=== PATIENT | male | born 1935 | race Caucasian/White ===

== ENCOUNTER 2022-08-26 02:33 | Emergency (ER) | payer OTHER, SELFPAY ==
--- NOTE | ~2022-08-26 | CT_ITS ---
CT of the Abdomen and Pelvis: Indication: Abdominal pain Technique: 2.5 mm axial scans were obtained through the abdomen and pelvis following intravenous adm inistration of 100 cc of Omnipaque 350. Dose reduction technique was used on this scan by utilizing a utomated exposure control and iterative reconstruction technique. The dose-length product (DLP) was 2 86.82 mGy-cm. Findings: Scans through the lung bases are unremarkable. There is mild intrahepatic biliary dilatation. No hepatic parenchymal mass identified. There is ill-d efined hypodense mass measuring approximately 5.8 x 3.4 cm in the pancreatic body of the proximal radha l, extensively encasing the celiac axis vessels and also encasing the SMA, suspicious for pancreatic adenocarcinoma. Focal calcifications noted to the pancreatic head. The spleen, gallbladder, adrenals and right kidney are within normal limits. 8 mm left lower pole massiel al stone present. No evidence of aortic aneurysm. There are atherosclerotic calcifications of the aor ta. No lymphadenopathy. There is a large left inguinal hernia containing a large portion of the sigmoid colon. No bowel obstr uction evident. Fat-containing right inguinal hernia noted. Images through the pelvis were performed. 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 Prostate gland is markedly enlarged, and indents to the bladder base. No ascites. Impression: 5.8 x 3.4 cm hypodense mass at the pancreatic body and tail, highly suspicious for pancreatic adenoca rcinoma. There is extensive encasement of the celiac axis vessels and the SMA. Large left inguinal hernia containing a large portion of the sigmoid colon. No bowel obstruction evid ent. Mild intrahepatic biliary dilatation. 8 mm nonobstructing left renal stone. Fat-containing right inguinal hernia. Markedly enlarged prostate gland. Urinary bladder wall thickening. Correlate for cystitis. Reviewed, dictated and finalized at location . [facility] Impression: 5.8 x 3.4 cm hypodense mass at the pancreatic body and tail, highly suspicious for pancreatic adenocarcinoma. There is extensive encasement of the celiac axis vessels and the SMA. Large left inguinal hernia containing a large portion of the sigmoid colon. No bowel obstruction evident. Mild intrahepatic biliary dilatation. 8 mm nonobstructing left renal stone. Fat-containing right inguinal hernia. Markedly enlarged prostate gland. Urinary bladder wall thickening. Correlate for cystitis.
[2022-08-26 02:35] VITALS: BP 120/71; PULSE 77; RESP 18; TEMP 36.6; O2SAT 99
[2022-08-26 03:13] LABS: Glucose Point of Care 98 mg/dl (65-105)
[2022-08-26 03:13] LABS: Glucose Point of Care 121 mg/dl (65-105)
[2022-08-26 03:33] LABS: Basophils Percent Auto 0.2 % (0.2-1.2); Eosinophils Percent Auto 0.2 % (0-4.4); Hematocrit 37.2 % (42.0-52.0); Hemoglobin 11.9 g/dL (14.0-18.0); Immature Granulocyte Absolute 0.02 K/mm3 (0.00-0.031); Immature Granulocyte Percent A 0.3 % (0-0.5); Lymphocytes Absolute Auto 0.54 K/mm3 (0.9-3.2); Lymphocytes Percent Auto 8.7 % (18.3-44.2); Mean Corpuscular Hemoglobin 31.6 pg (26-34); Mean Corpuscular Volume 98.7 fl (80-100); Mean Platelet Volume 11.6 fl (7.4-10.4); Monocytes Absolute Auto 0.5 K/mm3 (0.1-0.6); Monocytes Percent Auto 7.5 % (2.6-8.5); Neutrophils Absolute Auto 5.2 K/mm3 (1.3-6.7); Neutrophils Percent Auto 83.1 % (45.5-73.1); Platelet Count Result 156 k/mm3 (150-375); Red Blood Count 3.77 M/mm3 (4.6-6.20); Red Cell Distribution Width 14.6 % (11.5-14.5); White Blood Count 6.2 K/mm3 (4.5-10.0)
--- NOTE | 2022-08-26 03:39 | ED.GENADULT ---
HPI - General Adult General Chief complaint: Unspecified <Dakota Mckeon DO - Last Filed: 08/26/22 06:49> Stated complaint: dizzy/hypoglycemia <Dakota Mckeon DO - Last Filed: 08/26/22 06:49> Time Seen by Provider: 08/26/22 02:35 <Dakota Mckeon DO - Last Filed: 08/26/22 06:49> Source: EMS and RN notes reviewed <Dakota Mckeon DO - Last Filed: 08/26/22 06:49> History of Present Illness HPI narrative: Patient presents emergency department from home via EMS for hypoglycemia. Patient states he began to have symptoms of hypoglycemia around midnight. States he began to feel dizzy and checked his blood sugar was low EMS was called and EMS got blood sugars in the 40s he was given glucose tablets as well as Ensure but repeat levels remained in the 30s and 40s and was started on D10 and transported for further evaluation. Patient's current blood sugar is up in the 100s. He has no complaints at this time states has had no recent illness. States he is on both insulin as well as metformin and has been taking his medications as prescribed with no recent changes in medications states he did eat this evening. States has had no nausea or vomiting or any other symptoms <Dakota Mckeon DO - Last Filed: 08/26/22 06:49> Review of Systems Review of Systems: Gen.: Denies fevers or chills ENT: Denies congestion Respiratory: Denies shortness of breath or cough CV: Denies chest pain or palpitations GI: Denies abdominal pain nausea, emesis or diarrhea denies burning, urgency, frequency or hematuria Musculoskeletal: Denies back pain or muscle pain Neuro: Reports dizziness with hypoglycemia, denies headache Skin: Denies rash Endocrine: See HPI Except as documented, all other systems reviewed and negative <DO Piyush Le Last Filed: 08/26/22 06:49> PMFSH Past Medical History Medical History: Medical History (Updated 08/26/22 @ 06:49 by Dakota Mckeon DO) Diabetes mellitus <Dakota Mckeon DO - Last Filed: 08/26/22 06:49> Social History Social History: Social History (Updated 08/26/22 @ 03:41 by MARCELO Le Smoking status: Never smoker <Dakota Mckeon DO - Last Filed: 08/26/22 06:49> Exam Narrative: APPEARANCE: No acute distress, nontoxic, resting in bed EYES: EOMI HEENT: Normocephalic, atraumatic, OMM RESPIRATORY: No respiratory distress Clear to auscultation bilaterally with no rhonchi wheezing or rales. CARDIOVASCULAR: Regular rate and rhythm without murmurs rubs or gallops. ABDOMINAL: Soft, nontender, nondistended, no rebound or guarding MUSCULOSKELETAl: Moves all extremities. No clubbing, cyanosis or edema. NEURO: Awake and alert. Following commands, speech normal, no focal deficits SKIN:: Warm, dry. No rashes lesions or abrasions PSYCHIATRIC: Normal affect/mood, <Dakota Mckeon DO - Last Filed: 08/26/22 06:49> Course Course Emergency Course: Following lab results I discussed with the patient the patient has been having no abdominal pain no nausea or vomiting he does have mild tenderness in the right upper quadrant deep palpation will CT at this time Called discussed with Dr. Anaya presentation work-up states patient will likely need to go someplace where stent can be placed in bile duct and will transfer at this time Discussed with patient results of work-up discussed need for transfer agrees with plan for transfer to [facility] He will be turned over to Dr. Young at shift change awaiting transfer <Dakota Mckeon DO - Last Filed: 08/26/22 06:49> Reevaluation(s) Reevaluation #1: Patient care was signed out to me by Dr. Mckeon. Case was discussed with Dr. Patel. Since the patient was afebrile with no leukocytosis had no abdominal pain. Patient was initially presenting for hypoglycemia patient's blood sugars have been stable. Patient was tolerating p.o. patient was updated on the results of
[2022-08-26 03:49] LABS: Albumin Level 4.2 g/dL (3.5-5.1); Alkaline Phosphatase 505 U/L (38-126); Anion Gap 7 mmol/L (8-16); Bilirubin,Total 3.2 mg/dL (0.2-1.3); Blood Urea Nitrogen 29 mg/dL (9-20); Calcium 8.9 mg/dL (8.4-10.2); Carbon Dioxide 27 mmol/L (22-30); Chloride 102 mmol/L (98-107); Estimated CRCL calculation 32 ml/min; Estimated Glomerular Filt Rate 57; Glucose 209 mg/dL (65-110); Potassium 3.2 mmol/L (3.4-5.0); Sodium 136 mmol/L (137-145)
[2022-08-26 04:20] LABS: Alanine Aminotransferase 945 U/L (6-50); Aspartate Amino Transferase 870 U/L (17-59)
[2022-08-26 04:26] LABS: Glucose Point of Care 180 mg/dl (65-105)
[2022-08-26 04:37] LABS: Lipase 163 U/L (23-300)
[2022-08-26] MEDS: POTASSIUM CHLORIDE 20 MEQ TABLET PO (05:22)
[2022-08-26 05:23] VITALS: BP 141/81; PULSE 80; RESP 18; TEMP 36.6; O2SAT 99
[2022-08-26 06:51] LABS: Glucose Point of Care 202 mg/dl (65-105)
[2022-08-26 06:54] LABS: Creatine Kinase 31 U/L (55-170)
[2022-08-26 07:00] VITALS: BP 158/99; PULSE 80; RESP 21; O2SAT 100
[2022-08-26 07:08] LABS: Appearance Urine Cloudy (Clear); Bacteria Urine 1+ /hpf; Bilirubin Urine 2+ (Negative); Color Urine Dark Yellow (Yellow); Glucose Urine UA 2+ mg/dL (Negative); Ketones Urine Negative (Negative); Leukocyte Esterase Ur 2+ LEU/UL (Negative); Need Manual Microscopic Reviewed; Nitrate Urine Negative (Negative); Protein Urine 2+ mg/dL (Negative); RBC Urine 0-2 /hpf (0-2); Squamous Epithelial Cell Urine Occasional /hpf (Few); WBC Urine >100 /hpf; pH Urine 5.5 (5.0-9.0)
[2022-08-26 07:28] LABS: Add Urine Microscopic? YES; Specific Grav Ur 1.049 (1.001-1.035)
[2022-08-26 08:00] VITALS: BP 132/98; PULSE 81; RESP 16; O2SAT 100
--- NOTE | 2022-08-26 08:18 | PC.NURSE ---
Dr. Junaid Walker PCP at [address] [place] [address] phone number [phone]
[2022-08-26 08:55] VITALS: BP 127/77; PULSE 85; RESP 18; O2SAT 100
== END 2022-08-26 08:57 | disposition home or self-care (01) ==
PROVIDERS: Emergency Provider Emergency Medicine
DX: K86.9 Disease of pancreas, unspecified (principal); E11.649 Type 2 diabetes mellitus with hypoglycemia without coma; Z79.4 Long term (current) use of insulin; Z79.84 Long term (current) use of oral hypoglycemic drugs
CPT/HCPCS: 36415; 74177; 80053; 81001; 82550; 82948; 83690; 85025; 87086; 87147; 87181; 87186; 99284; A9270; Q9967

== ENCOUNTER 2022-09-06 20:02 | Emergency (ER) | payer OTHER, SELFPAY ==
[2022-09-06] VITALS (20 sets, daily range): BP systolic 105–173; BP diastolic 77–94; PULSE 89–110; RESP 15–32; TEMP 36.4; O2SAT 94–100
--- NOTE | ~2022-09-06 | XR_ITS ---
EXAMINATION: XR chest 2V Exam Date/Time: 09/06/2022 20:34 CDT HISTORY: SOB Comparison: None available. RESULT: Lines, tubes, and devices: None. Lungs and pleura: Senescent change. Calcified granulomas. Otherwise clear. Cardiomediastinal silhouette: Unremarkable. Other: No acute osseous or upper abdominal finding. IMPRESSION: No acute cardiopulmonary process. Reviewed, dictated and finalized at location K.
--- NOTE | ~2022-09-06 | CT_ITS ---
EXAMINATION: CT abdomen pelvis wo con DATE: 09/06/2022 21:30 INDICATION: abdominal pain, increased jaundice TECHNIQUE: Computed tomography (CT) of the abdomen and pelvis was performed without intravenous contr ast. Automated exposure control and iterative reconstruction technique were employed. The dose-length product was 247.56 mGy-cm. COMPARISON: 08/26/2022. FINDINGS: Lower thorax: Calcified right lower lobe granuloma. Coronary artery calcifications. Liver: Normal. Biliary/Gallbladder: The gallbladder is collapsed. Gallstones. Slightly increased intrahepatic bile d uct dilation. Pancreas: Ill-defined hypodensities in the pancreatic body/tail, not well visualized. Coarse calcific ations in the pancreatic head. Spleen: Normal. Adrenals:No mass. Kidneys: Moderate bilateral perinephric stranding. Simple midpole cyst on the left. No hydronephrosis . Nonobstructing calculus in a left midpole calyx. GI tract: The rectum is dilated to 6.0 cm by formed stool, with mild rectal wall thickening. No small bowel dilation. Normal appendix. Mesentery/Peritoneum: No ascites, mass, or free air. Retroperitoneum: No mass. Atherosclerotic abdominal aortic and/or arterial calcifications. Pelvis: Marked bladder wall thickening. Marked prostatomegaly. Soft Tissues: Large left inguinal hernia containing fat and nonobstructed loop of sigmoid colon. Unco mplicated fat-containing moderate sized right inguinal hernia. Bones: No acute osseous finding. IMPRESSION: Known pancreatic mass not well visualized without intravenous contrast. Slightly increased intrahepat ic bile duct dilation. Bladder wall thickening which may be secondary to outlet compromise or cystiti s. Mild fecal impaction. Reviewed, dictated and finalized at location K. IMPRESSION: Known pancreatic mass not well visualized without intravenous contrast. Slightl y increased intrahepatic bile duct dilation. Bladder wall thickening which may be secondary to outlet compromise or cystitis. Mild fecal impaction.
--- NOTE | 2022-09-06 20:25 | ECG_ITS ---
Measurements Intervals [place] Rate: 103 P: 72 ME: 186 QRS: -79 QRSD: 87 T: 77 QT: 329 QTc: 432 Interpretive Statements SINUS TACHYCARDIA LEFT ANTERIOR FASCICULAR BLOCK CONSIDER ANTERIOR INFARCT, AGE INDETERMINATE INFERIOR INFARCT, AGE INDETERMINATE BASELINE ARTIFACT- I, II, AVR, AVL ABNORMAL ECG NO PREVIOUS ECG AVAILABLE FOR COMPARISON Electronically Signed On 09-07-2022 8:36:32 CDT by Saturnino Hardy D.O.
[2022-09-06 20:39] LABS: Basophils Percent Auto 0.5 % (0.2-1.2); Eosinophils Percent Auto 0.2 % (0-4.4); Hemoglobin 12.5 g/dL (14.0-18.0); Immature Granulocyte Absolute 0.02 K/mm3 (0.00-0.031); Immature Granulocyte Percent A 0.3 % (0-0.5); Lymphocytes Absolute Auto 0.52 K/mm3 (0.9-3.2); Lymphocytes Percent Auto 8.5 % (18.3-44.2); Mean Corpuscular HGB Conc 33.8 g/dl (32-36); Mean Corpuscular Hemoglobin 32.1 pg (26-34); Mean Corpuscular Volume 94.9 fl (80-100); Mean Platelet Volume 12.7 fl (7.4-10.4); Monocytes Absolute Auto 0.4 K/mm3 (0.1-0.6); Monocytes Percent Auto 6.8 % (2.6-8.5); Neutrophils Absolute Auto 5.1 K/mm3 (1.3-6.7); Neutrophils Percent Auto 83.7 % (45.5-73.1); Platelet Count Result 241 k/mm3 (150-375); Red Cell Distribution Width 16.9 % (11.5-14.5); White Blood Count 6.1 K/mm3 (4.5-10.0)
[2022-09-06 20:54] LABS: Albumin Level 4.2 g/dL (3.5-5.1); Alkaline Phosphatase 1029 U/L (38-126); Anion Gap 14 mmol/L (8-16); Aspartate Amino Transferase 712 U/L (17-59); Bilirubin,Total 11.3 mg/dL (0.2-1.3); Blood Urea Nitrogen 42 mg/dL (9-20); Calcium 9.3 mg/dL (8.4-10.2); Carbon Dioxide 22 mmol/L (22-30); Chloride 99 mmol/L (98-107); Estimated CRCL calculation 27 ml/min; Estimated Glomerular Filt Rate 44; Glucose 483 mg/dL (65-110); Potassium 4.7 mmol/L (3.4-5.0); Sodium 135 mmol/L (137-145)
[2022-09-06 21:06] LABS: Alanine Aminotransferase 874 U/L (6-50)
[2022-09-06 21:54] LABS: Lipase 209 U/L (23-300); Magnesium 2.4 mg/dL (1.6-2.3)
[2022-09-06 21:55] LABS: Lactic Acid Reflex 1.4 mmol/L (0.7-2.0)
[2022-09-06 22:06] LABS: NT Pro B Type Natriuretic Pept 345 pg/mL (19.9-100); Troponin I < 0.012 ng/mL (0.000-0.034)
[2022-09-06 22:33] LABS: Procalcitonin 0.7 ng/mL
[2022-09-06 22:34] LABS: INR 1.2; Prothrombin Time 14.4 Seconds (11.1-14.7)
--- NOTE | 2022-09-06 23:05 | ED.GENADULT ---
HPI - General Adult General Chief complaint: Shortness of Breath/Dyspnea Stated complaint: sob Time Seen by Provider: 09/06/22 21:07 History of Present Illness HPI narrative: Patient 87-year-old gentleman who presents the emergency department with chief complaint of generalized weakness and shortness of breath. Patient was seen on the second of this month and found to have a pancreatic mass and biliary obstruction due to the mass the patient is scheduled to have a stent placed at [facility] on Tuesday and the family has noticed the patient has been getting progressively weaker and has noticed that he is also been complaining that he feels as though he just cannot get a good deep breath the patient also has noticed that his jaundice nose has become progressively worse and the family is concerned about this Related Data Allergies Allergy/AdvReac Type Severity Reaction Status Date / Time Penicillins Allergy Other Verified 09/06/22 21:57 Review of Systems Review of Systems: A 10 system review of systems was completed on the patient and is negative except for what is stated in the HPI. Nursing and ancillary documentation was reviewed. [facility] Past Medical History Medical History Diabetes mellitus Social History Social History Smoking status: Never smoker Exam Narrative: GENERAL: Ill-appearing significantly jaundiced HEAD: Normocephalic, atraumatic. EYES: PERRLA and EOMI. ENT: Nares clear, no rhinorrhea or epistaxis. Mucous membranes moist. NECK: Supple. CHEST: Clear to auscultation. No respiratory distress. HEART: Regular rate and rhythm. No murmur heard. Normal peripheral pulses. ABDOMEN: Soft, nontender, nondistended, normal active bowel sounds. EXTREMITIES: Normal range of motion. No edema. SKIN: Warm, dry, no rash. NEURO: No focal deficits. Alert and oriented x3. PSYCH: Normal mood and affect. Course Vital Signs Vital signs: Vital Signs Temperature 36.4 C L 09/06/22 20:22 Pulse Rate 103 H 09/06/22 20:22 Respiratory Rate 22 H 09/06/22 20:22 Blood Pressure 105/83 09/06/22 20:22 Pulse Oximetry 99 09/06/22 20:22 Oxygen Delivery Room Air 09/06/22 20:22 Temperature 36.4 C L 09/06/22 20:22 Pulse Rate 92 09/06/22 22:32 Respiratory Rate 32 H 09/06/22 22:32 Blood Pressure 173/80 H 09/06/22 22:32 Pulse Oximetry 100 09/06/22 22:32 Oxygen Delivery Room Air 09/06/22 21:13 Medical Decision Making MDM Narrative Medical decision making narrative: Differential diagnosis includes pneumonia, CHF, pulmonary edema, abdominal ascites, hyperbilirubinemia Chest x-ray showed no focal infiltrate CT scan redemonstrated the pancreatic mass but no evidence of ascites Laboratory studies showed a normal white blood cell count hemoglobin was 12.5 electrolytes showed a creatinine of 1.5 and a GFR of 27 lactic acid is 1.4 bilirubin has increased to 11.3 troponin is less than 0.12 BNP was 345 procalcitonin is 0.7 lipase was 203 Due to the patient being planned for a procedure at [facility] and having biliary obstruction the case was discussed with the hospitalist Dr. Mohr who accepted the patient to the wait list at [facility] Vital Signs Vital Signs: Vital Signs Temperature 36.4 C L 09/06/22 20:22 Pulse Rate 103 H 09/06/22 20:22 Respiratory Rate 22 H 09/06/22 20:22 Blood Pressure 105/83 09/06/22 20:22 Pulse Oximetry 99 09/06/22 20:22 Oxygen Delivery Room Air 09/06/22 20:22 Temperature 36.4 C L 09/06/22 20:22 Pulse Rate 92 09/06/22 22:32 Respiratory Rate 32 H 09/06/22 22:32 Blood Pressure 173/80 H 09/06/22 22:32 Pulse Oximetry 100 09/06/22 22:32 Oxygen Delivery Room Air 09/06/22 21:13 Lab Data 09/06/22 20:32 09/06/22 20:32 Labs: Lab Results 09/06/22 09/06/22 09/06/22 Ra
--- NOTE | 2022-09-06 23:12 | PC.NURSE ---
Patient accepted and on waitlist at [facility].
--- NOTE | 2022-09-06 23:28 | PC.NURSE ---
Dalila from [facility] transfer center at this time. Pt has been accepted by DR. León Mohr(hospitalist) at [facility]. Requesting Covid swab result when done. Call back number is [phone].
[2022-09-07] VITALS: PULSE 95; RESP 18; O2SAT 100
[2022-09-07 00:01] VITALS: BP 137/80; PULSE 96; RESP 19; O2SAT 100
[2022-09-07] MEDS: INSULIN HUMAN REGULAR (*BKC) 100 UNITS/ML 10 UNITS SUB-Q (00:04)
--- NOTE | 2022-09-07 00:09 | PC.NURSE ---
[facility] transfer center called at this time and pt has bed assignment at this time to room 2616-A at [facility] with a number to call report [phone] for RN to RN.
[2022-09-07 00:32] LABS: Influenza A QL RT-PCR Negative (Negative); Influenza B QL RT-PCR Negative (Negative); SARS-CoV-2 RNA PCR Negative
--- NOTE | 2022-09-07 00:38 | PC.NURSE ---
Attempted to call RN to RN at [phone], RN was unavailable and call back number provided at [phone].
--- NOTE | 2022-09-07 01:10 | PC.NURSE ---
[facility] here for transfer to [facility] at this time. Pt departed from this facility with no issues at this time.
== END 2022-09-07 01:17 | disposition short-term general hospital (02) ==
PROVIDERS: Emergency Provider Emergency Medicine
DX: K86.89 Other specified diseases of pancreas (principal); K83.1 Obstruction of bile duct; E11.9 Type 2 diabetes mellitus without complications; R06.00 Dyspnea, unspecified; Z20.822 Contact with and (suspected) exposure to COVID-19; R00.0 Tachycardia, unspecified; I44.4 Left anterior fascicular block; R94.31 Abnormal electrocardiogram [ECG] [EKG]
CPT/HCPCS: 36415; 71046; 74176; 80053; 83605; 83690; 83735; 83880; 84145; 84484; 85025; 85610; 85730; 87636; 93005; 99285; J1815